=== PATIENT | male | born 1960 | race Caucasian/White ===

== ENCOUNTER → 2017-12-09 | Outpatient (CLI) | payer SELFPAY ==
[2017-12-09 14:09] LABS: HEMATOCRIT 43.7 % (42.0-52.0); MEAN PLATELET VOLUME 9.1 fl (7.4-10.4); RED BLOOD COUNT 5.3 M/mm3 (4.20-5.60); WHITE BLOOD COUNT 5.9 K/mm3 (4.8-10.8)
[2017-12-09 14:17] LABS: ALBUMIN 4.7 g/dL (3.5-5.0); BUN/CREATININE RATIO 29.7 (6.0-26.0); CALCIUM 9.8 mg/dL (8.4-10.2); POTASSIUM 4.1 mmol/L (3.6-5.0); TOTAL BILIRUBIN 0.3 mg/dL (0.2-1.3); TOTAL PROTEIN 8.2 g/dL (6.3-8.2)
== END ==
LOC: LAB 13:49
PROVIDERS: Family Medicine
DX: Z00.00 Encounter for general adult medical examination without abnormal findings (principal); Z88.0 Allergy status to penicillin; Z88.8 Allergy status to other drugs, medicaments and biological substances

== ENCOUNTER → 2018-12-29 | Outpatient (CLI) | payer SELFPAY ==
[2018-12-29 09:15] LABS: ALBUMIN 4.4 g/dL (3.5-5.0); CALCIUM 10.2 mg/dL (8.4-10.2); TOTAL BILIRUBIN 0.6 mg/dL (0.2-1.2); TOTAL PROTEIN 7.4 g/dL (6.4-8.3)
== END ==
LOC: LAB 08:43
PROVIDERS: Family Medicine
DX: Z00.00 Encounter for general adult medical examination without abnormal findings (principal); R73.9 Hyperglycemia, unspecified